=== PATIENT | female | born 1935 | race Caucasian/White ===

== ENCOUNTER 2018-08-01 09:45 | Outpatient (CLI) | payer MEDICARE ==
[~2018-08-01 09:45] MED LIST: AMLO10TA8 PO; ASPI-650 PO; DIAZ5TAB PO; DIAZ5TAB4 PO; DOCU-144 PO; ENAL20TA PO; HYDR-3241 PO; LACT1CAP43 PO; METO25TA35 PO; PANT40TA3 PO; SERT50TA28 PO; SULF-169 PO; TRAM50TA2 PO
== END 2018-08-01 23:59 | disposition home or self-care (01) ==
LOC: CFH 09:45
PROVIDERS: ATTEND Internal Medicine Cardiovascular Disease
DX: I08.0 Rheumatic disorders of both mitral and aortic valves (principal); I10 Essential (primary) hypertension
CPT/HCPCS: 93306